=== PATIENT | male | born 1985 | race Two or more races ===

== ENCOUNTER 2024-09-19 15:17 | Emergency (ER) | payer BC, OTHER ==
[~2024-09-19] VITALS: Ht 182.9 cm; Wt 92.5 kg
[2024-09-19] MEDS ORDERED: DIAZ10TA4 PO (16:36)
[2024-09-19 16:44] VITALS: BP 136/72; O2SAT 97
== END 2024-09-19 16:49 | disposition home or self-care (01) ==
LOC: ER 15:17
DX: F41.1 Generalized anxiety disorder (principal); F41.0 Panic disorder [episodic paroxysmal anxiety]; F31.9 Bipolar disorder, unspecified; R06.00 Dyspnea, unspecified; R07.89 Other chest pain; Z86.69 Personal history of other diseases of the nervous system and sense organs; Z87.09 Personal history of other diseases of the respiratory system
CPT/HCPCS: 71045; A4606; A4663